=== PATIENT | male | born 1965 | race Caucasian/White ===

== ENCOUNTER 2016-08-23 11:08 | Emergency (ER) | payer MEDICAID, OTHER ==
[2016-08-23 11:08] VITALS: BMI 28.0
[2016-08-23 11:15] VITALS: BP 130/70; PULSE 78; RESP 18; TEMP 98.1; O2SAT 99
--- NOTE | 2016-08-23 11:26 | C.PDOC ---
Time Seen by Provider: 08/23/16 11:17 Chief Complaint (Nursing): Substance Abuse Past Medical History Vital Signs: Last Vital Signs Temp 98.1 F 08/23/16 11:14 Pulse 78 08/23/16 11:14 Resp 18 08/23/16 11:14 BP 130/70 08/23/16 11:14 Pulse Ox 99 08/23/16 11:27 - Medical History PMH: Anxiety Family History: States: Unknown Family Hx - Social History Hx Tobacco Use: Yes Hx Alcohol Use: No Hx Substance Use: No - Immunization History Hx Tetanus Toxoid Vaccination: No Hx Influenza Vaccination: No Hx Pneumococcal Vaccination: No ED Course And Treatment O2 Sat by Pulse Oximetry: 99 Progress Note: Case was discussed w/ recreation worker Carmen, who states that there are no detox beds available. Patient made aware; Pt will be discharged w/ a list of detox programs, and information for the detox co-ordinator/instructions for pre-screening process. Patient is agreeable with plan. All questions answered. Disposition - Disposition Referrals: [facility] at [facility] [Outside] Additional Instructions: PATIENT CAME TO ER FOR DETOX BED, NO CURRENT DETOX BEDS AVAILABLE RETURN TO ER AT LATER DATE, OR CALL FOR PRESCREENING Instructions: Narcotic Abuse (ED) Print Language: GERMAN - Clinical Impression Clinical Impression: Heroin dependence
--- NOTE | 2016-08-23 11:27 | C.PDOC ---
History Of Present Illness 51-year-old male presents to the emergency department requesting detox from Heroin. Patient states he used one bag today. He denies physical complaints, and has no SI/HI. Time Seen by Provider: 08/23/16 11:17 Chief Complaint (Nursing): Substance Abuse History Per: Patient History/Exam Limitations: no limitations Onset/Duration Of Symptoms: Persistent Modifying Factor(s): Narcotics Associated Symptoms: denies: Suicidal Thoughts Past Medical History Reviewed: Historical Data, Nursing Documentation, Vital Signs Vital Signs: Last Vital Signs Temp 98.1 F 08/23/16 11:14 Pulse 78 08/23/16 11:14 Resp 18 08/23/16 11:14 BP 130/70 08/23/16 11:14 Pulse Ox 99 08/23/16 12:26 - Medical History PMH: Anxiety Family History: States: No Known Family Hx - Social History Hx Tobacco Use: Yes Hx Alcohol Use: No Hx Substance Use: Yes (heroin) - Immunization History Hx Tetanus Toxoid Vaccination: No Hx Influenza Vaccination: No Hx Pneumococcal Vaccination: No Review Of Systems Except As Marked, All Systems Reviewed And Found Negative. Constitutional: Negative for: Fever Cardiovascular: Negative for: Chest Pain, Palpitations Respiratory: Negative for: Cough, Shortness of Breath Gastrointestinal: Negative for: Nausea, Vomiting, Abdominal Pain, Diarrhea Psych: Negative for: Suicidal ideation Physical Exam - Physical Exam Appears: Well, Non-toxic, No Acute Distress Head: Normacephalic Eye(s): bilateral: Normal Inspection Oral Mucosa: Moist Cardiovascular: Rhythm Regular Respiratory: Normal Breath Sounds, No Rales, No Rhonchi, No Wheezing Neurological/Psych: Oriented x3 Gait: Steady ED Course And Treatment O2 Sat by Pulse Oximetry: 99 (RA) Pulse Ox Interpretation: Normal Progress Note: Spoke with crisis counselor Carmen, there are no detox beds currently available. Patient informed and discharged w/ a list of local detox programs, as well as ,information for our detox co-ordinator/instructions for pre-screening process. Patient is agreeable with plan. Disposition Counseled Patient/Family Regarding: Diagnosis, Need For Followup - Disposition Referrals: [facility] at [facility] [Outside] Disposition: HOME/ ROUTINE Disposition Time: 11:30 Condition: STABLE Additional Instructions: PATIENT CAME TO ER FOR DETOX BED, NO CURRENT DETOX BEDS AVAILABLE RETURN TO ER AT LATER DATE, OR CALL FOR PRESCREENING Instructions: Narcotic Abuse (ED) Print Language: COLOMBIAN - POA Present On Arrival: None - Clinical Impression Clinical Impression: Heroin dependence - Scribe Statement The provider has reviewed the documentation as recorded by the Scribe Hamzah Celestin All medical record entries made by the Ramezibe were at my direction and personally dictated by me. I have reviewed the chart and agree that the record accurately reflects my personal performance of the history, physical exam, medical decision making, and the department course for this patient. I have also personally directed, reviewed, and agree with the discharge instructions and disposition.
== END 2016-08-23 11:49 | disposition home or self-care (01) ==
LOC: C.ER 11:08
DX: F11.20 Opioid dependence, uncomplicated (principal)

== ENCOUNTER 2016-08-24 12:10 | Inpatient (IN) | payer MEDICAID, OTHER ==
[2016-08-24 12:10] VITALS: BMI 28.0
[2016-08-24 13:20] LABS: BASO % 0.4 % (0.0-2.0); EOS % 0.3 % (0.0-4.0); HEMATOCRIT 40.6 % (35.0-51.0); LYMPH # 1.3 K/uL (1.0-4.3); MEAN CORPUSCULAR HEMOGLOBIN 22.5 pg (27.0-31.0); MEAN CORPUSCULAR HGB CONC 31.6 g/dL (33.0-37.0); MEAN PLATELET VOLUME 9.7 fL (7.2-11.7); MONO # 0.5 K/uL (0.0-0.8); MONO % 7.9 % (0.0-10.0); NRBC % 0.1 % (0.0-2.0); RED CELL DISTRIBUTION WIDTH 14.5 % (11.5-14.5); WHITE BLOOD COUNT 6.9 K/uL (4.8-10.8)
[2016-08-24 13:25] LABS: URINE BILIRUBIN NEGATIVE (NEGATIVE); URINE BLOOD NEGATIVE (NEGATIVE); URINE COLOR Yellow (YELLOW); URINE GLUCOSE (UA) NORMAL (Normal); URINE KETONE NEGATIVE (NEGATIVE); URINE LEUKOCYTE ESTERASE NEG Leu/uL (Negative); URINE PROTEIN NEGATIVE (NEGATIVE); URINE UROBILINOGEN NORMAL mg/dL (0.2-1.0); WBC URINE 1 /hpf (0-5)
[2016-08-24 13:26] LABS: CHLORIDE 100 mmol/L (98-107)
[2016-08-24 13:27] LABS: POTASSIUM 4.5 mmol/L (3.6-5.2); SODIUM 139 mmol/L (132-148)
[2016-08-24 13:29] LABS: ALKALINE PHOSPHATASE 56 U/L (38-126); AST/SGOT 26 U/L (17-59); BILIRUBIN,TOTAL 0.7 mg/dL (0.2-1.3); BLOOD UREA NITROGEN 14 mg/dL (9-20); CARBON DIOXIDE 29 mmol/L (22-30); GFR AFRICAN-AMERICAN > 60; TOTAL PROTEIN 7.9 g/dL (6.3-8.3)
[2016-08-24 13:30] LABS: ALCOHOL SERUM < 10 mg/dl (0-10); ALT/SGPT 37 U/L (21-72); CALCIUM 9.1 mg/dl (8.6-10.4); GLUCOSE,RANDOM 96 mg/dL (75-110)
--- NOTE | 2016-08-24 13:30 | C.PDOC ---
History Of Present Illness 51-year-old male PMHx includes Anxiety, presents to the emergency department requesting detox from Heroin. Patient states he uses about three bags of Heroin daily, last use yesterday. Patient denies nausea/vomiting, chest pain, shortness of breath or other physical complaints. Time Seen by Provider: 08/24/16 12:24 Chief Complaint (Nursing): Substance Abuse History Per: Patient History/Exam Limitations: no limitations Modifying Factor(s): Narcotics Severity: Moderate Past Medical History Reviewed: Historical Data, Nursing Documentation, Vital Signs Vital Signs: Last Vital Signs Temp 97.7 F 08/27/16 09:00 Pulse 67 08/27/16 09:00 Resp 18 08/27/16 09:00 BP 115/70 08/27/16 09:00 Pulse Ox 100 08/27/16 09:00 - Medical History PMH: Anxiety Family History: States: No Known Family Hx - Social History Hx Tobacco Use: Yes Hx Alcohol Use: No Hx Substance Use: Yes - Immunization History Hx Tetanus Toxoid Vaccination: No Hx Influenza Vaccination: No Hx Pneumococcal Vaccination: No Review Of Systems Except As Marked, All Systems Reviewed And Found Negative. Constitutional: Negative for: Fever Cardiovascular: Negative for: Chest Pain, Palpitations Respiratory: Negative for: Cough, Shortness of Breath Gastrointestinal: Negative for: Nausea, Vomiting, Abdominal Pain, Diarrhea Psych: Negative for: Suicidal ideation Physical Exam - Physical Exam Appears: Well, Non-toxic, No Acute Distress Skin: Warm, Dry, No Rash Head: Normacephalic Eye(s): bilateral: Normal Inspection Oral Mucosa: Moist Cardiovascular: Rhythm Regular Respiratory: Normal Breath Sounds, No Rales, No Rhonchi, No Wheezing Gastrointestinal/Abdominal: Normal Exam, Bowel Sounds, Soft, No Tenderness Extremity: Normal ROM Neurological/Psych: Oriented x3 ED Course And Treatment - Laboratory Results Result Diagrams: 08/24/16 13:05 08/24/16 13:05 O2 Sat by Pulse Oximetry: 99 (RA) Pulse Ox Interpretation: Normal Progress Note: Bloodwork, UA. UDs ordered and reviewed. Pending crisis evaluation. 14:00- Patient medically cleared. 14:14- Patient accepted for heroin detox admission by Dr. Melgar. Disposition - Disposition Disposition: HOSPITALIZED Disposition Time: 14:14 Condition: STABLE - POA Present On Arrival: None - Clinical Impression Clinical Impression: Heroin dependence - Scribe Statement The provider has reviewed the documentation as recorded by the Scribe Hamzah Celestin All medical record entries made by the Scribe were at my direction and personally dictated by me. I have reviewed the chart and agree that the record accurately reflects my personal performance of the history, physical exam, medical decision making, and the department course for this patient. I have also personally directed, reviewed, and agree with the discharge instructions and disposition. Decision To Admit - Pt Status Changed To: Hospital Disposition Of: Inpatient - Admit Certification Admit to Inpatient:: After my assessment, the patient will require hospitalization for at least two midnights. This is because of the severity of symptoms shown, intensity of services needed, and/or the medical risk in this patient being treated as an outpatient. - InPatient: Physician Admission Certification: I certify that this patient requires 2 or more midnights of care for the following reason:: see notes - . Bed Request Type: Detox Admitting Physician: Lucretia Melgar Patient Diagnosis: Heroin dependence
[2016-08-24 15:09] VITALS: RESP 18
[2016-08-24] MEDS ORDERED: Aluminum Hydroxide/Magnesium Hydroxide Susp (30 mL) PO PRN (22:41)
[2016-08-25] MEDS ORDERED: Buprenorphine Hydrochloride 2 mg SL ONE ×2 (08:18→09:30)
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
[2016-08-26] MEDS ORDERED: Buprenorphine Hydrochloride 2 mg SL ONE (11:18)
--- NOTE | 2016-08-26 22:31 | PCM.PYCHPN ---
Psychiatric Progress Note - Psychiatric Progress Note Patient seen today, length of contact: 16 min Patient Chief Complaint: "I'm OK" Problems Identified/Issues Discussed: The pt is seen, chart reviewed, case discussed with staff. The pt is compliant with medications and reports no side-effects. Symptoms are improving but needs more time to stabilize. After care discussed, support and psychoeducation given. Medication Change: Yes (detox changes daily) Medical Record Reviewed: Yes Mental Status Examination - Cognitive Function Orientation: Person, Place, Situation, Time Memory: Intact Attention: WNL Concentration: Poor Association: WNL Fund of Knowledge: WNL - Mood Mood: Anxious - Affect Affect: Constricted - Speech Speech: Appropriate - Formal Thought Process Formal Thought Process: No Impairment - Suicidal Ideation Suicidal Ideation: No - Homicidal Ideation Homicidal Ideation: No Goal/Treatment Plan - Goal/Treatment Plan Need for Continued Stay: Discharge may exacerbated symptoms, Severe functional impairment Progress Toward Problem(s) and Goals/Treatment Plan: Opioid use disorder- severe -Subutex -Support and psychoeducation -As needed medications and vitamins -Attend groups and activities -OR and CBT for abstinence
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
[2016-08-27] MEDS ORDERED: Buprenorphine Hydrochloride 2 mg SL ONE (08:58)
[2016-08-27 09:39] VITALS: BP 115/70; PULSE 67; TEMP 97.7
[2016-08-29 17:54] VITALS: O2SAT 99
== END 2016-08-27 10:15 | disposition home or self-care (01) | DRG 745 ==
LOC: C.ER 12:10 → C.7D 14:14
PROVIDERS: ADMIT Psychiatry & Neurology Psychiatry; ATTEND Psychiatry & Neurology Psychiatry
PROC: HZ2ZZZZ Detoxification Services for Substance Abuse Treatment (ICD-10-PCS; principal; 2016-08-24)
DX: F11.20 Opioid dependence, uncomplicated (principal); F41.9 Anxiety disorder, unspecified; F17.210 Nicotine dependence, cigarettes, uncomplicated

== ENCOUNTER 2017-08-10 05:34 | Emergency (ER) | payer OTHER ==
[2017-08-10 05:34] VITALS: BMI 28.0
--- NOTE | 2017-08-10 06:02 | C.PDOC ---
History Of Present Illness 52 year old male presents to the ED c/o left lower back pain radiating down to his left leg that started prior to arrival. Patient reports he was painting a room yesterday but denies any strenuous activity. Patient reports his pain worsens with movement. Patient denies injury, fall, trauma, saddle anesthesia, weakness, numbness, urinary/bowel incontinence. Chief Complaint (Nursing): Back Pain History Per: Patient History/Exam Limitations: no limitations Onset/Duration Of Symptoms: Hrs Current Symptoms Are (Timing): Still Present Quality Of Discomfort: "Pain" Previous Symptoms: Back Pain Exacerbating Factor(s): Turning, Movement Recent travel outside of the [place]: No Additional History Per: Patient Past Medical History Reviewed: Historical Data, Nursing Documentation, Vital Signs Vital Signs: Last Vital Signs Temp 98.1 F 08/10/17 05:40 Pulse 72 08/10/17 05:40 Resp 14 08/10/17 05:40 BP 97/61 L 08/10/17 05:40 Pulse Ox 99 08/10/17 06:03 - Medical History PMH: Anxiety Denies: Diabetes, Hepatitis, HIV, HTN, Chronic Kidney Disease, Seizures, Sexually Transmitted Disease Surgical History: No Surg Hx - [facility] DETOXIFICATION SERVICES FOR SUBSTANCE ABUSE TREATMENT (08/24/16) Family History: States: Unknown Family Hx - Social History Hx Tobacco Use: Yes Hx Alcohol Use: No Hx Substance Use: Yes - Immunization History Hx Tetanus Toxoid Vaccination: No Hx Influenza Vaccination: No Hx Pneumococcal Vaccination: No Review Of Systems Constitutional: Negative for: Fever, Chills Cardiovascular: Negative for: Chest Pain Respiratory: Negative for: Shortness of Breath Gastrointestinal: Negative for: Abdominal Pain Musculoskeletal: Positive for: Back Pain, Leg Pain Neurological: Negative for: Weakness, Numbness Physical Exam - Physical Exam Appears: Non-toxic, No Acute Distress Skin: Normal Color, Warm, Dry Head: Atraumatic, Normacephalic Eye(s): bilateral: Normal Inspection Nose: No Discharge Oral Mucosa: Moist Neck: Normal ROM, Supple Chest: Symmetrical Cardiovascular: Rhythm Regular, No Murmur Respiratory: Normal Breath Sounds, No Rales, No Rhonchi, No Wheezing Gastrointestinal/Abdominal: Soft, No Tenderness, No Guarding, No Rebound Back: Paraspinal Tenderness (left lumbar ) Extremity: Normal ROM, No Tenderness, Capillary Refill (< 2 seconds), No Swelling Pulses: Left Dorsalis Pedis: Normal, Right Dorsalis Pedis: Normal Neurological/Psych: Oriented x3, Normal Motor, Normal Sensation Gait: Steady ED Course And Treatment O2 Sat by Pulse Oximetry: 99 (On RA) Pulse Ox Interpretation: Normal Medical Decision Making Medical Decision Making: On re-exam, the patient reports improvement of symptoms. Lungs are CTA, heart is RRR, abdomen is soft, non-tender and the patient is tolerating PO. Ambulatory in the ED with steady gait. Follow up with the medical doctor within 1-2 days. Return if worsened Disposition - Disposition Referrals: [facility] at [facility] [Outside] Disposition: HOME/ ROUTINE Disposition Time: 06:45 Condition: GOOD Additional Instructions: Follow up with the medical doctor within 1-2 days. Return if worsened Prescriptions: Cyclobenzaprine [Flexeril] 5 mg PO TID #21 tab Lidocaine 5% [Lidoderm] 1 each TP DAILY #10 patch Naproxen [Naprosyn] 500 mg PO BID #20 tab Instructions: Radiculopathy Forms: Ayannah (Sudanese), Work Excuse Print Language: HEBREW - Clinical Impression Clinical Impression: Lumbar radiculopathy - PA / PEDIATRIC RADIOLOGIST / Resident Statement MD/DO has reviewed & agrees with the documentation as recorded. - Scribe Statement The provider has reviewed the documentation as recorded by the Scribe Myles Castaneda All medical record entries made by the Scribe were at my direction and personally dictated by me. I have reviewed the chart and agree that the record accurately reflects my personal performance of the history, physical exam, medical decision making, and the department course for this patient. I have also personally directed, reviewed, and agree with the discharge instructions and disposition.
[2017-08-10] MEDS ORDERED: Dexamethasone 4 mg/1 ml ONE (06:20)
[2017-08-10] MEDS ORDERED: Lidocaine 5% Patch TD ONE (06:20)
[2017-08-10] MEDS: Dexamethasone 4 mg/1 ml IM STA (06:27)
[2017-08-10] MEDS: Lidocaine 5% Patch TD STA (06:27)
[2017-08-10 07:06] VITALS: BP 106/69; PULSE 56; RESP 16; TEMP 97.5; O2SAT 98
== END 2017-08-10 07:07 | disposition home or self-care (01) ==
LOC: C.ER 05:34
DX: M54.16 Radiculopathy, lumbar region (principal)
CPT/HCPCS: 96372; 99284; J1100; J1885

== ENCOUNTER 2017-11-10 00:28 | Emergency (ER) | payer OTHER ==
[2017-11-10 00:29] VITALS: BMI 28.0
[2017-11-10] MEDS ORDERED: Albuterol 0.083% Inhal Sol (2.5 mg/3 mL) UD IH STA (00:47)
--- NOTE | 2017-11-10 00:53 | C.PDOC ---
History Of Present Illness 52 y/o male presents to ED for complaints of shortness of breath that began tonight after he smoke 2 packs of cigarettes. Denies pain, PMHx of asthma, or any other physical complaints. Chief Complaint (Nursing): Shortness Of Breath History Per: Patient History/Exam Limitations: no limitations Onset/Duration Of Symptoms: Hrs Current Symptoms Are (Timing): Still Present Initiating Event: Exposure To Smoke Current Respiratory Medications: See Home Med List Associated Symptoms: denies: Fever, Chills, Chest Pain Recent travel outside of the [place]: No Past Medical History Reviewed: Historical Data, Nursing Documentation, Vital Signs Vital Signs: Last Vital Signs Temp 98.1 F 11/10/17 00:40 Pulse 66 11/10/17 00:40 Resp 16 11/10/17 01:00 BP 105/64 11/10/17 00:40 Pulse Ox 96 11/10/17 02:40 - Medical History PMH: Anxiety - [facility] FOR SUBSTANCE ABUSE TREATMENT (08/24/16) Family History: States: Unknown Family Hx - Social History Hx Tobacco Use: Yes Hx Alcohol Use: No Hx Substance Use: Yes - Immunization History Hx Tetanus Toxoid Vaccination: No Hx Influenza Vaccination: No Hx Pneumococcal Vaccination: No Review Of Systems Constitutional: Negative for: Fever, Chills Cardiovascular: Negative for: Chest Pain Respiratory: Positive for: Shortness of Breath. Negative for: Cough Gastrointestinal: Negative for: Nausea, Vomiting, Abdominal Pain, Diarrhea Skin: Negative for: Rash Neurological: Negative for: Weakness, Numbness Physical Exam - Physical Exam Appears: Well, Non-toxic, No Acute Distress Skin: Normal Color, Warm, Dry, No Rash Head: Atraumatic, Normacephalic Eye(s): bilateral: Normal Inspection, PERRL, EOMI Oral Mucosa: Moist Neck: Supple Chest: Symmetrical, No Tenderness Cardiovascular: Rhythm Regular, No Murmur Respiratory: Decreased Breath Sounds, No Rales, No Rhonchi, No Wheezing Gastrointestinal/Abdominal: Soft, No Tenderness, No Distention Extremity: Normal ROM, No Deformity Extremity: Bilateral: Atraumatic, Normal Color And Temperature, Normal ROM Neurological/Psych: Oriented x3, Normal Speech, Other (No focal deficits ) Gait: Steady ED Course And Treatment - Laboratory Results Result Diagrams: 11/10/17 01:15 11/10/17 01:15 ECG: Interpreted By Me, Viewed By Me ECG Rhythm: Sinus Tachycardia ECG Interpretation: Normal, No Acute Changes Interpretation Of ECG: Sinus bradycardia, normal tracings. Rate From EC O2 Sat by Pulse Oximetry: 96 (RA) Pulse Ox Interpretation: Normal - Radiology CXR: Interpreted by Me, Viewed By Me CXR Interpretation: Yes: No Acute Disease. No: Infiltrates, Cardiomegaly ( normal chest film) Medical Decision Making Medical Decision Making: Administered Albuterol peak flow. Ordered EKG, blood work, and CXR. Upon re-evaluation, , patient is feeling much better and is stable for discharge. Patient is medically stable and ready for discharge. Counseling has been provided and patient is in agreement. Return if symptoms persist or acutely worsen. Disposition Counseled Patient/Family Regarding: Diagnosis - Disposition Referrals: [facility] [Outside] Disposition: HOME/ ROUTINE Disposition Time: 02:36 Condition: IMPROVED Prescriptions: Albuterol HFA [Ventolin HFA 90 mcg/actuation (8 g)] 2 puff IH [id number] #1 inhaler Instructions: Smoking: Not Just Harmful to Your Lungs and Heart, Asthma, Adult (DC), Medicines for Asthma Forms: [facility] (Albanian), Gen Discharge Inst Rwandan Print Language: WELSH - POA Present On Arrival: None - Clinical Impression Clinical Impression: Dyspnea, Smoker's respiratory syndrome - Scribe Statement The provider has reviewed the documentation as recorded by the Ramezibjavier Sterling All medical record entries made by the Scribe were at my direction and personally dictated by me. I have reviewed the chart and agree that the record accurately reflects my personal performance of the history, physical exam, medical decision making, and the department course for this patient. I have also personally directed, reviewed, and agree with the discharge instructions and disposition.
[2017-11-10 01:21] LABS: BASO % 0.3 % (0.0-2.0); EOS # 0.1 K/uL (0.0-0.7); HEMOGLOBIN 10.9 g/dL (12.0-18.0); LYMPH # 1.7 K/uL (1.0-4.3); LYMPH % 26.8 % (20.0-40.0); MEAN CELL VOLUME 70.6 fL (80.0-94.0); MEAN CORPUSCULAR HEMOGLOBIN 22.9 pg (27.0-31.0); MEAN CORPUSCULAR HGB CONC 32.5 g/dL (33.0-37.0); MONO # 0.5 K/uL (0.0-0.8); MONO % 8.4 % (0.0-10.0); NEUT # 4.1 K/uL (1.8-7.0); NEUT % 63.5 % (50.0-75.0); RBC 4.77 Mil/uL (4.40-5.90); RED CELL DISTRIBUTION WIDTH 14.5 % (11.5-14.5); WHITE BLOOD COUNT 6.4 K/uL (4.8-10.8)
[2017-11-10] MEDS ORDERED: Albuterol 0.083% Inhal Sol (2.5 mg/3 mL) UD ONE (01:41)
[2017-11-10 01:47] LABS: ALB/GLOB RATIO 1.7 (1.0-2.1); ALBUMIN 4.2 g/dL (3.5-5.0); ALT/SGPT 35 U/L (21-72); AST/SGOT 27 U/L (17-59); BLOOD UREA NITROGEN 18 mg/dL (9-20); CALCIUM 9.2 mg/dl (8.6-10.4); GFR AFRICAN-AMERICAN > 60; GFR NON-AFRICAN AMERICAN > 60
[2017-11-10 02:52] VITALS: BP 100/63; PULSE 98; RESP 20; TEMP 97.6; O2SAT 97
--- NOTE | 2017-11-10 08:33 | RAD ---
Date of service: 11/10/2017 HISTORY: SOB COMPARISON: 10/03/2015 TECHNIQUE: Chest PA and lateral FINDINGS: LUNGS: No active pulmonary disease. PLEURA: No significant pleural effusion identified. No pneumothorax apparent. CARDIOVASCULAR: Normal. OSSEOUS STRUCTURES: No significant abnormalities. VISUALIZED UPPER ABDOMEN: Normal. OTHER FINDINGS: None. IMPRESSION: No active disease. No change
--- NOTE | 2017-11-11 21:00 | CARD ---
APPROVED REPORT Date of service: 11/10/2017 EKG Measurement Heart [id number] <Conclusion> Sinus bradycardia Otherwise normal ECG
== END 2017-11-10 02:52 | disposition home or self-care (01) ==
LOC: C.ER 00:28
DX: R06.00 Dyspnea, unspecified (principal); J70.8 Respiratory conditions due to other specified external agents; Z72.0 Tobacco use

== ENCOUNTER 2018-04-27 13:34 | Emergency (ER) | payer OTHER ==
[2018-04-27 13:34] VITALS: BMI 28.0
[2018-04-27 13:56] VITALS: BP 137/75; PULSE 59; RESP 16; TEMP 98.4; O2SAT 98
--- NOTE | 2018-04-27 15:18 | C.PDOC ---
History Of Present Illness The patient ia a 52 year old male who has a history of pain to upper shoulders and back of the neck. Patient often gets pimples in the areas and has been popping them. Patient presents to the ED for evalaution of right shoulder pain. He reports minimal pain with movement of the shoulder. He was evaluated in [facility] yesterday where he underwent a CXR, EKG and was given a "shot" (unable to recall name). Patient presents to the ED today because his pain persists. He denies fever, chills, chest pain and shortness of breath at this time. Time Seen by Provider: 04/27/18 13:54 Chief Complaint (Nursing): Upper Extremity Problem/Injury History Per: Patient History/Exam Limitations: no limitations Onset/Duration Of Symptoms: Days Current Symptoms Are (Timing): Still Present Quality: "Pain" Exacerbating Factor(s): Movement Additional History Per: Patient Past Medical History Reviewed: Historical Data, Nursing Documentation, Vital Signs Vital Signs: Last Vital Signs Temp 98.4 F 04/27/18 13:53 Pulse 59 L 04/27/18 13:53 Resp 16 04/27/18 13:53 BP 137/75 04/27/18 13:53 Pulse Ox 98 04/27/18 13:53 - Medical History PMH: Anxiety Denies: Diabetes, Hepatitis, HIV, HTN, Chronic Kidney Disease, Seizures, Sexually Transmitted Disease Surgical History: No Surg Hx - [facility] SERVICES FOR SUBSTANCE ABUSE TREATMENT (08/24/16) Family History: States: Unknown Family Hx - Social History Hx Tobacco Use: Yes Hx Alcohol Use: No Hx Substance Use: Yes - Immunization History Hx Tetanus Toxoid Vaccination: No Hx Influenza Vaccination: No Hx Pneumococcal Vaccination: No Review Of Systems Constitutional: Negative for: Fever, Chills Cardiovascular: Negative for: Chest Pain Respiratory: Negative for: Shortness of Breath Musculoskeletal: Positive for: Shoulder Pain (right) Physical Exam - Physical Exam Appears: Non-toxic, No Acute Distress Skin: Warm, Dry, Other (2x2cm area of erythema with some scabbing to top of posterior neck, near hairline. 2x2cm erythematous area to right of midline of upper back that includes unroofed blister to the area. no purulent discharge, induration or fluctuance ) Head: Atraumatic, Normacephalic Eye(s): bilateral: Normal Inspection Oral Mucosa: Moist Neck: Supple Chest: Symmetrical, No Deformity, No Tenderness Cardiovascular: Rhythm Regular, No Murmur Respiratory: Normal Breath Sounds, No Rales, No Rhonchi, No Wheezing Extremity: Normal ROM, Capillary Refill (less than 2 seconds ) Neurological/Psych: Oriented x3, Normal Speech, Normal Cognition ED Course And Treatment O2 Sat by Pulse Oximetry: 98 (on RA ) Pulse Ox Interpretation: Normal Medical Decision Making Medical Decision Making: Plan: * toradol IM * reassess and disposition Progress: Toradol IM given. Rx written for Keflex for possible developing cellulitis on posterior neck/shoulders. Disposition - Disposition Disposition: HOME/ ROUTINE Disposition Time: 14:54 Condition: GOOD Additional Instructions: REBEL ALANIZ, thank you for letting us take care of you today. Your provider was Janine Chiang MD and you were treated for SHOULDER PAIN. The emergency medical care you received today was directed at your acute symptoms. If you were prescribed any medication, please fill it and take as directed. It may take several days for your symptoms to resolve. Return to the Emergency Department if your symptoms worsen, do not improve, or if you have any other problems. Please contact your doctor or call one of the physicians/clinics you have been referred to that are listed on the Patient Visit Information form that is included in your discharge packet. Bring any paperwork you were given at discharge with you along with any medications you are taking to your follow up visit. Our treatment cannot replace ongoing medical care by a primary care provider outside of the emergency department. Thank you for allowing the [facility] team to be part of your care today. If you had an X-Ray or CT scan: A Radiologist will review the ED reading if any change in treatment is needed we will contact you. If you had a blood, urine, or wound culture: It will take several days for the results, if any change in treatment is needed we will contact you. If you had an STI test: It will take 48 hours for the results. Please call after 1 week if you have not heard back. Prescriptions: Cephalexin [Keflex] 500 mg PO Q6H #28 capsule Instructions: Cellulitis (Skin Infection), Adult (DC) Forms: Gen Discharge Inst Mexican, [employer] (Mexican) Print Language: UKRAINIAN - Clinical Impression Clinical Impression: Cellulitis - Scribe Statement The provider has reviewed the documentation as recorded by the Scribe (Kamryn Khanna) Provider Attestation: All medical record entries made by the Scribe were at my direction and personally dictated by me. I have reviewed the chart and agree that the record accurately reflects my personal performance of the history, physical exam, medical decision making, and the department course for this patient. I have also personally directed, reviewed, and agree with the discharge instructions and disposition.
== END 2018-04-27 14:58 | disposition home or self-care (01) ==
LOC: C.ER 13:34
DX: L03.221 Cellulitis of neck (principal); Z72.0 Tobacco use
CPT/HCPCS: 96372; 99284; J1885